=== PATIENT | female | born 1970 | race African-American/Black ===

== ENCOUNTER 2022-02-28 02:52 | Observation (INO) | payer SELFPAY ==
[2022-02-28] MEDS ORDERED: NITROGLYCERIN SUBLINGUAL 1/150 0.4 MG TAB SL ONE (03:00)
[2022-02-28] MEDS ORDERED: LORazepam 2 MG/ML SDV VIAL IVPB ONE (03:19)
[2022-02-28] MEDS ORDERED: ACETAMINOPHEN 1000 MG/100 ML BAG IVPB ONE ×2 (03:28→09:21)
[2022-02-28] MEDS ORDERED: ACETAMINOPHEN INJECTION 100 ML IVPB ONE ×2 (03:38→09:36)
[2022-02-28 03:49] LABS: BASO % 0.4 % (0-2.0); EOS % 0.4 % (0-4.5); HEMOGLOBIN 14.1 GM/dL (10.7-15.3); MCH 28.9 pg (25.7-33.7); MCHC 33.5 g/dl (32.0-36.0); MEAN CELL VOLUME 86.3 fl (80-96); MONO % 2.9 % (3.8-10.2); NEUT % 79.3 % (42.8-82.8); PLATELET COUNT 244 10^3/uL (134-434); RBC 4.87 M/mm3 (3.60-5.2); RDW 13.3 % (11.6-15.6); WHITE BLOOD COUNT 6.8 K/mm3 (4.0-10.0)
[2022-02-28 03:55] LABS: INR 0.97 (0.83-1.09); PROTHROMBIN TIME (PATIENT) 11.1 SEC (9.7-13.0)
[2022-02-28] MEDS ORDERED: amLODIPine BESYLATE 5 MG TABLET (FP) PO ONE (04:03)
[2022-02-28 04:07] LABS: ALBUMIN 4.2 g/dl (3.4-5.0); CALCIUM 9.6 mg/dL (8.5-10.1)
[2022-02-28 04:08] LABS: BLOOD UREA NITROGEN 6.1 mg/dL (7-18)
[2022-02-28] MEDS ORDERED: amLODIPine BESYLATE 5 MG TABLET (FP) ONE ×2 (04:10→12:32)
[2022-02-28 04:11] LABS: CREATININE 0.7 mg/dL (0.55-1.3)
[2022-02-28 04:12] LABS: BILIRUBIN,TOTAL 0.5 mg/dL (0.2-1); TOT PROT 7.6 g/dl (6.4-8.2)
[2022-02-28] MEDS ORDERED: VALSARTAN 40 MG TABLET PO ONE (04:51)
[2022-02-28] MEDS ORDERED: VALSARTAN 80 MG TABLET ONE (04:59)
[2022-02-28] MEDS ORDERED: morphine CARPU-JECT 2 MG/1 ML DISP.SYRIN IVPUSH ONE ×2 (05:18→06:23)
[2022-02-28] MEDS ORDERED: LIDOCAINE 5% TOPICAL PATCH TP ONE (07:18)
[2022-02-28] MEDS ORDERED: LIDOCAINE 5% TOPICAL PATCH ONE (08:20)
[2022-02-28] MEDS ORDERED: ZOLPIDEM TARTRATE 5 MG TABLET PO PRN (09:54)
[2022-02-28] MEDS ORDERED: MOMETASONE FUROATE 15 GM TP SCH (10:00)
[2022-02-28 10:44] LABS: N-TERMINAL BNP 50.9 pg/ml (5-125)
[2022-02-28] MEDS ORDERED: amLODIPine BESYLATE 5 MG TABLET (FP) PO SCH (10:45)
[2022-02-28] MEDS ORDERED: GABAPENTIN 300 MG CAPSULE ONE ×2 (12:32→21:12)
[2022-02-28] MEDS: GABAPENTIN 300 MG CAPSULE PO SCH ×2 (12:49→21:47)
[2022-02-28] MEDS: INSULIN SLIDING SCALE (NOVOLOG) 1 VIAL SQ SCH ×2 (12:54→16:31)
[2022-02-28 15:03] LABS: PHENCYCLIDINE,URINE NEGATIVE (NEGATIVE)
[2022-02-28 15:04] LABS: METHADONE, UR NEGATIVE (NEGATIVE); URINE BARBITURATES NEGATIVE (NEGATIVE); URINE BENZODIAZEPINES NEGATIVE (NEGATIVE)
[2022-02-28 15:13] LABS: COCAINE, UR NEGATIVE (NEGATIVE); OPIATES, URI POSITIVE (NEGATIVE); URINE AMPHETAMINES NEGATIVE (NEGATIVE)
[2022-02-28] MEDS ORDERED: metoPROLOL SUCCINATE 25 MG TAB.SR.24H (FP) PO ONE (15:14)
[2022-02-28] MEDS ORDERED: metoPROLOL SUCCINATE 25 MG TAB.SR.24H (FP) ONE ×2 (15:20→19:25)
[2022-02-28] MEDS ORDERED: ACETAMINOPHEN 325 MG TABLET (FP) PO PRN (16:55)
[2022-02-28] MEDS ORDERED: oxyCODONE HCL 5 MG TABLET ONE (17:09)
[2022-02-28] MEDS: oxyCODONE HCL 5 MG TABLET PO PRN (17:10)
[2022-02-28] MEDS ORDERED: metoPROLOL SUCCINATE 25 MG TAB.SR.24H (FP) PO SCH (18:45)
[2022-02-28] MEDS ORDERED: LIDOCAINE PATCH REMOVAL MC SCH (19:00)
[2022-02-28] MEDS ORDERED: hydrALAZINE HCL 20 MG/ML VIAL IVPUSH PRN (21:46)
[2022-02-28] MEDS: LIDOCAINE HCL 5% TOP OINTMENT 50 GM TUBE TP SCH (21:47)
[2022-02-28] MEDS ORDERED: LABETALOL HCL 100 MG TABLET (FP) ONE (21:49)
[2022-02-28] MEDS: LABETALOL HCL 200 MG TABLET (FP) PO SCH (21:50)
[2022-02-28] MEDS ORDERED: clonazePAM 0.5 MG TABLET PO PRN (22:00)
[2022-02-28] MEDS ORDERED: ZOLPIDEM TARTRATE 5 MG TABLET ONE (23:19)
[2022-02-28] MEDS ORDERED: clonazePAM 0.5 MG TABLET ONE (23:22)
[2022-03-01] MEDS ORDERED: AZITHROMYCIN 250 MG TABLET ONE (00:19)
[2022-03-01 01:26] VITALS: BMI 30.9
[2022-03-01] MEDS: oxyCODONE HCL 5 MG TABLET PO PRN ×2 (05:42→13:57)
[2022-03-01] MEDS: INSULIN SLIDING SCALE (NOVOLOG) 1 VIAL SQ SCH ×3 (06:31→17:35)
[2022-03-01 07:34] LABS: BASO % 0.8 % (0-2.0); HEMATOCRIT 40.6 % (32.4-45.2); HEMOGLOBIN 13.3 GM/dL (10.7-15.3); LYMPH % 33.8 % (8-40); MCH 28.6 pg (25.7-33.7); MCHC 32.7 g/dl (32.0-36.0); MEAN CELL VOLUME 87.5 fl (80-96); MEAN PLT VOLUME 9.4 fl (7.5-11.1); MONO % 9.6 % (3.8-10.2); NEUT % 53.8 % (42.8-82.8); PLATELET COUNT 228 10^3/uL (134-434); RBC 4.64 M/mm3 (3.60-5.2); RDW 13.5 % (11.6-15.6); WHITE BLOOD COUNT 4.7 K/mm3 (4.0-10.0)
[2022-03-01 08:53] LABS: BLOOD UREA NITROGEN 6.5 mg/dL (7-18)
[2022-03-01 09:15] LABS: CALCIUM 9.8 mg/dL (8.5-10.1)
[2022-03-01 09:30] LABS: CREATININE 0.6 mg/dL (0.55-1.3)
[2022-03-01] MEDS: LABETALOL HCL 200 MG TABLET (FP) PO SCH (09:49)
[2022-03-01] MEDS: GABAPENTIN 300 MG CAPSULE PO SCH (09:49)
[2022-03-01] MEDS ORDERED: amLODIPine BESYLATE 10 MG TABLET (FP) PO SCH (10:00)
[2022-03-01] MEDS ORDERED: NIFEdipine E.R 60 MG TABLET PO SCH (10:00)
[2022-03-01] MEDS ORDERED: CEPHALEXIN MONOHYDRATE 250 MG CAPSULE (FP) PO SCH (14:31)
[2022-03-01] MEDS: LIDOCAINE HCL 5% TOP OINTMENT 50 GM TUBE TP SCH (15:58)
[2022-03-01 16:15] VITALS: BP 156/105; PULSE 97; TEMP 99
== END 2022-03-01 18:50 | disposition home or self-care (01) ==
LOC: JER 02:52 → MERGE 09:14 → JERBED 09:14 → J4W 23:31
PROVIDERS: ADMIT Internal Medicine; ATTEND Nurse Practitioner Family
PROC: 3E033NZ Introduction of Analgesics, Hypnotics, Sedatives into Peripheral Vein, Percutaneous Approach (ICD-10-PCS; principal; 2022-02-28)
PROC: 3E033NZ Introduction of Analgesics, Hypnotics, Sedatives into Peripheral Vein, Percutaneous Approach (ICD-10-PCS; 2022-02-28)
DX: I16.0 Hypertensive urgency (principal); E11.9 Type 2 diabetes mellitus without complications; J45.909 Unspecified asthma, uncomplicated; R51.9 Headache, unspecified; E66.8 Other obesity; Z68.30 Body mass index [BMI] 30.0-30.9, adult; R06.02 Shortness of breath; L53.9 Erythematous condition, unspecified; R00.0 Tachycardia, unspecified; R07.9 Chest pain, unspecified; Z91.018 Allergy to other foods; Z91.040 Latex allergy status
CPT/HCPCS: 0241U-QW; 36415; 70450-TC; 71045-TC-FY; 71275-TC; 74174-TC; 80048; 80053; 80061; 80307; 82962; 83036; 83880; 84443; 84484; 85025; 85610; 93005; 93010; 93306-TC; 99285-25; G0378; Q9967

== ENCOUNTER 2023-02-22 05:56 | Emergency (ER) | payer OTHER ==
[2023-02-22 06:12] VITALS: BP 158/99; PULSE 80; RESP 18; TEMP 98.8; BMI 31.1
[2023-02-22] MEDS ORDERED: ACETAMINOPHEN 1000 MG/100 ML BAG IVPB ONE (06:23)
[2023-02-22] MEDS ORDERED: KETOROLAC TROMETHAMINE 30 MG/1 ML VIAL IVPUSH ONE (06:24)
[2023-02-22] MEDS ORDERED: KETOROLAC TROMETHAMINE 30 MG/1 ML VIAL ONE (06:35)
[2023-02-22] MEDS ORDERED: ACETAMINOPHEN INJECTION 100 ML IVPB ONE (06:35)
[2023-02-22 07:59] LABS: HEMATOCRIT 39.8 % (32.4-45.2); HEMOGLOBIN 13.1 G/dL (10.7-15.3); MCH 32.1 pg (25.7-33.7); MCHC 32.9 g/dl (32.0-36.0); MEAN CELL VOLUME 97.4 fl (80-96); MEAN PLT VOLUME 9.4 fl (7.5-11.1); PLATELET COUNT 208.4 10^3/uL (134-434); RBC 4.09 10^6/uL (3.60-5.2); RDW 13.5 % (11.6-15.6); WHITE BLOOD COUNT 7.1 10^3/uL (4.0-10.8)
[2023-02-22 08:01] LABS: ALBUMIN 4.7 g/dl (3.4-5.0); ALK PHOS 53 U/L (45-117); ANION GAP 10 MMOL/L (8-16); BILIRUBIN,TOTAL 0.6 mg/dl (0.2-1); CHLORIDE 99 mmol/L (98-107); CO2 26 mmol/L (21-32); CREATININE 0.6 mg/dl (0.55-1.3); GLUCOSE,RANDOM 164 mg/dl (74-106); POTASSIUM 3.1 mmol/L (3.5-5.1); SGOT/AST 29 U/L (15-37); SGPT/ALT 39 U/L (13-61); SODIUM 135 mmol/L (136-145); TOT PROT 7.7 g/dl (6.4-8.2)
[2023-02-22] MEDS ORDERED: POTASSIUM CHLORIDE ORAL LIQUID 20 MEQ/15 ML PO ONE (08:15)
[2023-02-22] MEDS ORDERED: PROCHLORPERAZINE INJECTION 10 MG/2 ML VIAL IVPB ONE (08:23)
[2023-02-22] MEDS ORDERED: SODIUM CHLORIDE 0.9% 500 ML INFUS.BAG IV ONE (08:23)
[2023-02-22] MEDS ORDERED: POTASSIUM CHLORIDE ORAL LIQUID 20 MEQ/15 ML ONE (08:37)
[2023-02-22] MEDS ORDERED: PROCHLORPERAZINE INJECTION 10 MG/2 ML VIAL ONE (08:37)
== END 2023-02-22 11:25 | disposition home or self-care (01) ==
LOC: FER 05:56
PROC: 3E033NZ Introduction of Analgesics, Hypnotics, Sedatives into Peripheral Vein, Percutaneous Approach (ICD-10-PCS; principal; 2023-02-22)
PROC: 3E033GC Introduction of Other Therapeutic Substance into Peripheral Vein, Percutaneous Approach (ICD-10-PCS; 2023-02-22)
PROC: 3E0333Z Introduction of Anti-inflammatory into Peripheral Vein, Percutaneous Approach (ICD-10-PCS; 2023-02-22)
PROC: 3E033GC Introduction of Other Therapeutic Substance into Peripheral Vein, Percutaneous Approach (ICD-10-PCS; 2023-02-22)
DX: J01.90 Acute sinusitis, unspecified (principal); Z20.822 Contact with and (suspected) exposure to COVID-19
CPT/HCPCS: 0241U-QW; 36415; 70450-TC; 70486-TC; 71046-TC-FY; 80053; 85027; 86140; 99285-25